=== PATIENT | female | born 1980 | race Two or more races ===

== ENCOUNTER 2017-06-19 14:08 | Emergency (ER) | payer OTHER ==
[~2017-06-19] VITALS: Ht 157.5 cm; Wt 71.7 kg
[2017-06-19] MEDS ORDERED: ULTRAM50 MG PO (14:22)
[2017-06-19] MEDS ORDERED: AUGMENTIN 875-1 EACH PO (14:22)
== END 2017-06-19 14:27 | disposition home or self-care (01) ==
LOC: ED 14:08
DX: K08.89 Other specified disorders of teeth and supporting structures (principal)